=== PATIENT | female | born 1955 | race Caucasian/White ===

== ENCOUNTER 2018-11-30 07:23 | Day surgery (SDC) | payer MEDICARE, OTHER ==
[2018-11-30] MEDS ORDERED: PROPOFOL 20 ML (09:20)
[2018-11-30] MEDS ORDERED: FENTAnyl 50 MCG/ML VIAL (09:20)
[2018-11-30] MEDS ORDERED: ONDANSETRON 4 MG INJ IV (09:30)
== END 2018-11-30 12:48 | disposition home or self-care (01) ==
LOC: GIL 07:23
DX: Z12.11 Encounter for screening for malignant neoplasm of colon (principal); K29.70 Gastritis, unspecified, without bleeding; I10 Essential (primary) hypertension; E11.9 Type 2 diabetes mellitus without complications
CPT/HCPCS: 43235; 82962